=== PATIENT | female | born 1945 | race Asian ===

== ENCOUNTER 2023-06-30 09:05 | Outpatient (CLI) | payer MEDICARE, MEDICAID | END 2023-06-30 09:06 | disposition home or self-care (01) | LOC: CSHMAMMO 09:05 | PROVIDERS: ATTEND Family Medicine | DX: Z13.820 Encounter for screening for osteoporosis (principal); M81.0 Age-related osteoporosis without current pathological fracture; Z78.0 Asymptomatic menopausal state | CPT/HCPCS: 77080 ==